=== PATIENT | male | born 1990 | race Caucasian/White ===

== ENCOUNTER 2020-10-15 19:20 | Emergency (ER) | payer MEDICAID ==
[~2020-10-15] VITALS: Ht 180.3 cm; Wt 105.2 kg
[2020-10-15 19:30] VITALS: BP 140/82
--- NOTE | 2020-10-15 19:30 | NUR ---
to bed ambulatory
[2020-10-15] MEDS ORDERED: TETRACAINE HCL/PF 0.5% OPTH 4 ML BTL OP ONE (19:50)
--- NOTE | 2020-10-15 20:15 | NUR ---
Pt c/o right eye pain and swelling starting yesterday morning. States he does not know if something fell into eye. Right eye noted with red sclera and red and swollen eyelid. Denies discharge. States he has not had tetanus shot; consent given for tetanus shot administration. Denies medical hx.
[2020-10-15] MEDS ORDERED: FLUORESCEIN OPTH STRIP 1 MG OP ONE (20:25)
--- NOTE | 2020-10-15 20:25 | NUR ---
visual acuity test performed, pt scored 20/20 with L and R eyes
--- NOTE | 2020-10-15 20:38 | NUR ---
Grace moore in [facility] - 10/15/20 at [email or web address] ZACKERY MORALES PT
--- NOTE | 2020-10-15 20:42 | NUR ---
Dr. Daniel examining patient.
--- NOTE | 2020-10-15 21:26 | NUR ---
pt R eye irrigated with normal saline via katie lens. approximately 1000 ml used, pt stated he felt relief after irrigation
[2020-10-15] MEDS ORDERED: OFLOS RIGHT EYE (21:41)
[2020-10-15 22:03] VITALS: BP 134/79
--- NOTE | 2020-10-15 22:03 | NUR ---
Patient discharged with v/s stable. Written and verbal after care instructions given and explained. Patient alert, oriented and verbalized understanding of instructions. Ambulatory with steady gait. All questions addressed prior to discharge. ID band removed. Patient advised to follow up with PMD. Rx of Ofloxacin given. Patient educated on indication of medication including possible reaction and side effects. Opportunity to ask questions provided and answered.
== END 2020-10-15 22:03 | disposition home or self-care (01) ==
LOC: MED 19:20
DX: S05.01XA Injury of conjunctiva and corneal abrasion without foreign body, right eye, initial encounter (principal); X58.XXXA Exposure to other specified factors, initial encounter; Y93.89 Activity, other specified; Y92.89 Other specified places as the place of occurrence of the external cause; Y99.8 Other external cause status
CPT/HCPCS: 90471; 90715; 99283; J7030

== ENCOUNTER 2021-04-02 21:43 | Emergency (ER) | payer SELFPAY ==
[~2021-04-02] VITALS: Ht 180.3 cm; Wt 113.4 kg
[~2021-04-02 21:43] MED LIST: OFLOS RIGHT EYE
[2021-04-02 22:37] VITALS: BP 132/79
--- NOTE | 2021-04-02 22:55 | NUR ---
SEEN AND EXAMINED BY ERMD WITH ORDER.
--- NOTE | 2021-04-02 22:58 | NUR ---
PATIENT ELOPED FROM FACILITY. DISCHARGE INSTRUCTIONS NOT GIVEN TO PATIENT. DR. OBREGON NOTIFIED.
== END 2021-04-02 22:58 | disposition left against medical advice (07) ==
LOC: MED 21:43
DX: R06.02 Shortness of breath (principal); F10.129 Alcohol abuse with intoxication, unspecified; R55 Syncope and collapse; F17.200 Nicotine dependence, unspecified, uncomplicated; Z79.2 Long term (current) use of antibiotics
CPT/HCPCS: 99281